=== PATIENT | male | born 1985 | race Caucasian/White ===

== ENCOUNTER 2017-05-07 16:08 | Emergency (ER) | payer SELFPAY ==
[~2017-05-07] VITALS: Ht 157.5 cm; Wt 60.9 kg
[2017-05-07 16:12] VITALS: TEMP 99
[2017-05-07 17:16] LABS: HEMATOCRIT 40.6 % (42.0-52.0); HEMOGLOBIN 14.3 g/dl (13.5-18.0); MEAN CELL VOLUME 88 fl (80.0-100.0); MEAN CORPUSCULAR HEMOGLOBIN 31 pg (27.0-31.0); MEAN CORPUSCULAR HGB CONC 35 g/dl (33.0-37.0); MEAN PLATELET VOLUME 10.4 fl (7.4-10.4); PLATELET COUNT 209 K/mm3 (130-400); RED BLOOD COUNT 4.64 M/mm3 (4.20-5.60); REDCELL DISTRIBUTION WIDTH-CV 12.3 % (11.5-14.5); WHITE BLOOD COUNT 8.9 K/mm3 (4.8-10.8)
[2017-05-07 17:29] LABS: ADJUSTED CALCIUM 8.9 mg/dL (8.4-10.2); ALBUMIN 4.7 gm/dL (3.5-5.0); BILIRUBIN,TOTAL 0.6 mg/dL (0.0-1.0); CALCIUM 9.5 mg/dL (8.4-10.2); CREATININE, serum 0.85 mg/dL (0.66-1.25); POTASSIUM 4.2 mmol/L (3.4-5.0)
[2017-05-07 19:30] VITALS: BP 112/74; PULSE 74
== END 2017-05-07 19:31 | disposition home or self-care (01) ==
LOC: COL.ER 16:08
PROVIDERS: Physician Assistant Medical
DX: S72.392 Other fracture of shaft of left femur (principal); S71.142A Puncture wound with foreign body, left thigh, initial encounter; W45.8XXA Other foreign body or object entering through skin, initial encounter; W29.4XXA Contact with nail gun, initial encounter; Z23 Encounter for immunization
CPT/HCPCS: J0690; J3010; J7030; L1830

== ENCOUNTER 2017-06-14 22:51 | Inpatient (IN) | payer OTHER ==
[~2017-06-14] VITALS: Ht 157.5 cm; Wt 58.7 kg
[2017-06-15] VITALS (13 sets, daily range): BP systolic 98–125; BP diastolic 46–68; PULSE 67–90; TEMP 97.5–99.3
[2017-06-16 01:49] VITALS: BP 106/52; PULSE 78; TEMP 98.9
[2017-06-16 05:30] VITALS: BP 108/56; PULSE 72; TEMP 98.4
[2017-06-16 10:00] VITALS: BP 121/56; PULSE 77; TEMP 98.1
[2017-06-16 14:34] VITALS: BP 114/64; PULSE 78; TEMP 97.6
[2017-06-16 18:16] VITALS: BP 119/62; PULSE 88; TEMP 97.2
[2017-06-16 21:39] VITALS: BP 113/68; PULSE 65; TEMP 98.4
[2017-06-17 04:56] VITALS: BP 116/53; PULSE 82; TEMP 98.6
[2017-06-17 09:09] VITALS: BP 106/52; PULSE 87; TEMP 98
[2017-06-17 12:50] VITALS: BP 127/73; PULSE 106; TEMP 98.8
== END 2017-06-17 15:54 | disposition home or self-care (01) | DRG 482 ==
LOC: COL.ER 22:51 → SURG 06-15 00:32
DX: S72.442A Displaced fracture of lower epiphysis (separation) of left femur, initial encounter for closed fracture (principal); W01.0XXA Fall on same level from slipping, tripping and stumbling without subsequent striking against object, initial encounter; Y93.E5 Activity, floor mopping and cleaning; Y92.511 Restaurant or cafe as the place of occurrence of the external cause; Y99.0 Civilian activity done for income or pay
CPT/HCPCS: C1713; J0690; J1100; J1170; J1650; J1885; J2270; J2405; J2704; J2765; J3010; J7030; J7120; L1830